=== PATIENT | male | born 1960 | race Two or more races ===

== ENCOUNTER 2025-06-16 10:56 | Inpatient (IN) | payer OTHER ==
[~2025-06-16] VITALS: Ht 188 cm; Wt 127.0 kg
[2025-06-16] MEDS ORDERED: VAZALORE81 MG PO (11:32)
--- NOTE | 2025-06-16 11:38 | NUR ---
SE RECIBE PACIENTE ALERTA Y COCNIENTE X3. EL MISMO REFIERE TENER DIARREA, DOLOR ABDOMINAL Y DOLOR DE SANJIV DESDE EL SABADO. SE PROCEDE A MANUELA S/V AL PACIENTE Y SE UBICA EN HALIMA 8 CON BARANDAS ELEVADAS Y NIVEL MAS BAJO DE LA MISMA. SE REALIZA EKG Y MIGUEL ES EVALUADO POR GELACIO FRANCES
[2025-06-16] MEDS ORDERED: KETOROLAC TROMETHAMINE 30 MG VIAL ONE (12:22)
[2025-06-16] MEDS ORDERED: PIPERACILLIN/TAZOBACTAM SODIUM 3.375 GM VIAL IV ONE ×2 (12:22→12:30)
[2025-06-16] MEDS ORDERED: FAMOTIDINE/PF 20 MG/2 ML VIAL ONE (12:23)
[2025-06-16] MEDS ORDERED: KETOROLAC TROMETHAMINE 30 MG VIAL IU ONE (12:30)
[2025-06-16] MEDS ORDERED: 0.9 % SODIUM CHLORIDE 1,000 ML IV SCH ×2 (12:30→16:30)
[2025-06-16] MEDS ORDERED: FAMOTIDINE/PF 20 MG/2 ML VIAL IV ONE (12:30)
--- NOTE | 2025-06-16 12:47 | NUR ---
SE EDUCA A PACIENTE SOBRE TRATAMIENTO MEDICO EL CUAL REFIERE ENTENDER, SE REALIZA COLECCION DE MUESTRAS Y ADMINISTRACION DE MEDICAMENTOS MILADY ORDEN MEDICA.
[2025-06-16 12:54] LABS: BASO % 0.3 % (0.1-1.2); EOS # 0.01 (0.04-0.54); EOS % 0.1 % (0.7-7.0); LYMPH # 1.02 (1.18-3.74); LYMPH % 6.8 % (19.3-53.1); MEAN PLATELET VOLUME 9.90 fl (9.4-12.4); MONO # 1.14 (0.24-0.82); MONO % 7.6 % (4.7-12.5); NEUT # 12.70 (1.56-6.13); NEUT % 84.6 % (34.0-71.1); RED CELL DISTRIBUTION WIDTH 11.7 % (11.6-14.4)
[2025-06-16 13:16] LABS: ALT/SGPT 19.0 U/L (12-78); AST/SGOT 16.0 U/L (15-37); BILIRUBIN TOTAL 1.25 mg/dL (0.3-1.2); BUN CREA RATIO 9.0 (7.0-25.0); CREATININE SERUM 1.15 mg/dL (0.70-1.30); GFR 64.02; GLOBULINA 5.1 G/DL (2.4-3.5); GLUCOSE FASTING 98.0 mg/dL (65-100); OSMOLALITY SERUM 273.0 MOSM/KG (275-295)
[2025-06-16 13:50] LABS: ERYTHROCYTE SEDIMENTATION RATE 59 mm/hr (0-20)
[2025-06-16 13:53] LABS: URINE APPEARANCE Clear; URINE BILIRRUBIN Negative (NEGATIVE); URINE BLOOD Negative; URINE COLOR Dark Yellow; URINE GLUCOSE Negative (NEGATIVE); URINE LEUKOCYTE Trace; URINE NITRATE Negative; URINE PROTEIN 30 (NEGATIVE); URINE UROBILINOGEN 1.0 E.U./dl
[2025-06-16 13:57] LABS: URINE BACTERIA 35.9 uL (0.0-1933); URINE EPITHELIAL CELLS 9.3 uL (0.0-38.8); URINE RBC 42.9 uL (0.0-20.8); URINE WBC 5.0 uL (0.0-23.2)
[2025-06-16 14:00] LABS: URINE CAST 0.14 uL (0.0-1.40); URINE KETONE 40 (NEGATIVE)
[2025-06-16 14:12] LABS: COVID-19 AG NEGATIVE (NEGATIVE)
[2025-06-16] MEDS ORDERED: FAMOTIDINE/PF 20 MG in 0.9 % SODIUM CHLORIDE 8 ML IV PUSH SCH (16:23)
[2025-06-16] MEDS ORDERED: ACETAMINOPHEN 500 MG GEL..CAP PO PRN (16:30)
[2025-06-16] MEDS ORDERED: 0.9 % SODIUM CHLORIDE 1,000 ML IV ONE (16:30)
[2025-06-16] MEDS ORDERED: ENALAPRILAT DIHYDRATE 1.25 MG/ML VIAL IV PRN (16:30)
[2025-06-16] MEDS ORDERED: PIPERACILLIN/TAZOBACTAM SODIUM 3.375 GM in DEXTROSE 5 % IN WATER 100 ML IV SCH (18:00)
[2025-06-16] MEDS ORDERED: hydrALAZINE HCL 20 MG VIAL IV PRN (19:45)
[2025-06-16 23:33] LABS: INR 1.11
[2025-06-17] MEDS ORDERED: ACETAMINOPHEN 325 MG TABLET PO SCH
[2025-06-17 00:20] VITALS: BP 133/69
[2025-06-17 01:23] VITALS: BP 117/74; O2SAT 99
[2025-06-17 01:42] VITALS: BP 115/70; O2SAT 99
[2025-06-17 08:57] VITALS: BP 137/66; O2SAT 96
[2025-06-17] MEDS ORDERED: LINEZOLID IN DEXTROSE 5% 300 ML IV SCH (10:43)
[2025-06-17] MEDS ORDERED: LIDOCAINE HCL 1% 10ML VIAL IJ NR (12:00)
[2025-06-17] MEDS ORDERED: ONDANSETRON HCL 2 MG/ML VIAL IM PRN (14:45)
[2025-06-17] MEDS ORDERED: MORPHINE SULFATE 2 MG/ML SYRINGE IV PRN (14:45)
[2025-06-17 16:07] VITALS: BP 132/75; O2SAT 96
[2025-06-18 01:43] VITALS: BP 109/65; O2SAT 98
[2025-06-18] MEDS ORDERED: ENOXAPARIN SODIUM 40 MG/0.4 ML SYRINGE SUBCUTANEO SCH (09:00)
[2025-06-18] MEDS ORDERED: LIDOCAINE HCL 1% 10ML VIAL ONE (09:52)
[2025-06-18 09:53] VITALS: BP 132/65; O2SAT 98
[2025-06-18] MEDS ORDERED: LIDOCAINE HCL 1% 10ML VIAL IJ NR (11:00)
[2025-06-18 15:01] LABS: BUN CREA RATIO 6.0 (7.0-25.0); CREATININE SERUM 1.01 mg/dL (0.70-1.30); GFR 74.37; GLUCOSE FASTING 149.0 mg/dL (65-100); OSMOLALITY SERUM 276.0 MOSM/KG (275-295)
[2025-06-18 15:23] VITALS: BP 109/66; O2SAT 96
[2025-06-18 16:10] LABS: BASO % 0.3 % (0.1-1.2); EOS # 0.09 (0.04-0.54); EOS % 0.5 % (0.7-7.0); LYMPH # 1.37 (1.18-3.74); LYMPH % 7.9 % (19.3-53.1); MEAN PLATELET VOLUME 10.30 fl (9.4-12.4); MONO # 1.63 (0.24-0.82); MONO % 9.4 % (4.7-12.5); NEUT # 14.10 (1.56-6.13); NEUT % 80.9 % (34.0-71.1); RED CELL DISTRIBUTION WIDTH 11.9 % (11.6-14.4)
[2025-06-19 01:40] VITALS: BP 119/73; O2SAT 97
[2025-06-19 09:18] VITALS: BP 101/63; O2SAT 97
[2025-06-19 16:44] VITALS: BP 113/67; O2SAT 98
[2025-06-20 00:43] VITALS: BP 105/61; O2SAT 98
[2025-06-20 06:18] LABS: BASO % 0.5 % (0.1-1.2); EOS # 0.17 (0.04-0.54); EOS % 1.3 % (0.7-7.0); LYMPH # 2.18 (1.18-3.74); LYMPH % 16.6 % (19.3-53.1); MEAN PLATELET VOLUME 10.10 fl (9.4-12.4); MONO # 1.19 (0.24-0.82); MONO % 9.0 % (4.7-12.5); NEUT # 9.48 (1.56-6.13); NEUT % 72.0 % (34.0-71.1); RED CELL DISTRIBUTION WIDTH 11.7 % (11.6-14.4)
[2025-06-20 06:55] LABS: BUN CREA RATIO 5.0 (7.0-25.0); CREATININE SERUM 1.04 mg/dL (0.70-1.30); GFR 71.9; GLUCOSE FASTING 101.0 mg/dL (65-100); OSMOLALITY SERUM 281.0 MOSM/KG (275-295)
[2025-06-20 07:30] VITALS: BP 122/72; O2SAT 96
[2025-06-20 18:02] VITALS: BP 131/70; O2SAT 99
[2025-06-21 00:52] VITALS: BP 121/67; O2SAT 98
[2025-06-21 08:45] VITALS: BP 132/74; O2SAT 98
[2025-06-21 16:00] VITALS: BP 121/74; O2SAT 97
[2025-06-21 22:58] VITALS: BP 139/72; O2SAT 96
[2025-06-22 01:40] VITALS: BP 131/76; O2SAT 96
[2025-06-22 10:11] VITALS: BP 121/75; O2SAT 97
[2025-06-22 17:31] VITALS: BP 160/75; O2SAT 98
[2025-06-23 02:22] VITALS: BP 120/71; O2SAT 96
[2025-06-23 09:38] VITALS: BP 126/64; O2SAT 97
[2025-06-23 17:41] VITALS: BP 160/85; O2SAT 97
[2025-06-24 03:16] VITALS: BP 119/73; O2SAT 98
[2025-06-24 09:23] VITALS: BP 131/85; O2SAT 95
[2025-06-24 18:33] VITALS: BP 121/72
[2025-06-25 01:38] VITALS: BP 146/72; O2SAT 98
[2025-06-25 09:39] VITALS: BP 147/82; O2SAT 98
== END 2025-06-25 14:32 | disposition home or self-care (01) | DRG 603 ==
LOC: ER 10:56 → SURH 19:30 → MEDJ 06-21 19:56
PROVIDERS: General Practice; Student in an Organized Health Care Education/Training Program; ADMIT Student in an Organized Health Care Education/Training Program; ATTEND Student in an Organized Health Care Education/Training Program
PROC: BW21YZZ Computerized Tomography (CT Scan) of Abdomen and Pelvis using Other Contrast (ICD-10-PCS; 2025-06-16)
PROC: 0J990ZZ Drainage of Buttock Subcutaneous Tissue and Fascia, Open Approach (ICD-10-PCS; principal; 2025-06-17)
DX: L02.31 Cutaneous abscess of buttock (principal); N39.0 Urinary tract infection, site not specified; K35.80 Unspecified acute appendicitis; R50.9 Fever, unspecified; R53.81 Other malaise; B95.4 Other streptococcus as the cause of diseases classified elsewhere; B96.20 Unspecified Escherichia coli [E. coli] as the cause of diseases classified elsewhere; B96.89 Other specified bacterial agents as the cause of diseases classified elsewhere